=== PATIENT | female | born 2000 | race American Indian/Alaskan Native ===

== ENCOUNTER 2018-12-26 22:18 | Emergency (ER) | payer BC ==
[2018-12-26 22:19] VITALS: BMI 24.0
[2018-12-26 22:31] VITALS: TEMP 98.4
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
[2018-12-26 23:46] LABS: BASO # 0.03 K/mm3 (0.0-2.0); BASO % 0.4 % (0.0-3.0); EOS # 0.1 (0.0-0.7); HEMOGLOBIN 10.6 g/dL (12.0-16.0); LYMPH # 2.9 (1.2-3.4); LYMPH % 34.2 % (22.0-35.0); MEAN CORPUSCULAR HEMOGLOBIN 28.2 pg (25.0-35.0); MEAN CORPUSCULAR HGB CONC 32.4 g/dl (31.0-37.0); MEAN PLATELET VOLUME 11.7 fl (7.0-11.0); MONO # 0.7 (0.1-0.6); MONO % 8.8 % (1.0-6.0); RBC 3.76 10^6/uL (3.5-6.1); RED CELL DISTRIBUTION WIDTH 14.2 % (11.5-14.5); WHITE BLOOD COUNT 8.4 10^3/uL (4.5-11.0)
[2018-12-26 23:52] LABS: BLOOD UREA NITROGEN 11 mg/dL (7-21); CALCIUM 8.9 mg/dL (8.4-10.5); GFR NON-AFRICAN AMERICAN > 60
[2018-12-26 23:52] LABS: URINE BILIRUBIN NEGATIVE (NEGATIVE); URINE BLOOD NEGATIVE (NEGATIVE); URINE GLUCOSE (UA) NEGATIVE (NEGATIVE); URINE LEUKOCYTE ESTERASE TRACE Leu/uL (NEGATIVE); URINE PROTEIN NEGATIVE mg/dL (<30 mg/dL); URINE UROBILINOGEN 0.2 E.U./dL (<1 E.U./dL)
[2018-12-26 23:54] LABS: URINE APPEARANCE CLEAR (CLEAR); URINE COLOR YELLOW (YELLOW)
[2018-12-27 00:08] LABS: URINE AMORPHOUS SEDIMENT FEW /hpf; URINE BACTERIA FEW /hpf; URINE RBC 0 - 2 /hpf (0-2); URINE WBC 0 - 2 /hpf (0-6)
[2018-12-27 01:31] VITALS: BP 115/68; PULSE 78; RESP 15; O2SAT 99
--- NOTE | 2018-12-27 10:55 | US ---
Date of service: 12/27/2018 PROCEDURE: OB Pelvic Ultrasound HISTORY: 3-4 wks , abd pain LMP: 11/14/2018 COMPARISON: None available. FINDINGS: UTERUS: Gestational sac: Single intrauterine gestation. Measures 0.6 cm, out of range. pole not yet identified. Uterus measures 8.3 x 5.1 x 5.7 cm. Retroverted. Normal in size and appearance. CERVIX: Measures 2.8 cm. Long and closed. No cervical abnormality seen. RIGHT OVARY: Measures 3.6 x 2.2 x 2.8 cm. Corpus luteum. Normal flow. LEFT OVARY: Measures 3.9 x 2.4 x 3.4 cm. No solid mass. Normal flow. FREE FLUID: None. OTHER FINDINGS: None. IMPRESSION: Probable intrauterine gestational sac, out of range. Findings may represent early normal/abnormal with ectopic not entirely excluded. pole not yet identified. Close clinical follow-up with serial pelvic sonography and serum beta HCG levels is recommended.
== END 2018-12-27 01:25 | disposition home or self-care (01) ==
LOC: ED 22:18
DX: O26.891 Other specified pregnancy related conditions, first trimester (principal); Z3A.01 Less than 8 weeks gestation of pregnancy